=== PATIENT | female | born 1970 | race Caucasian/White ===

== ENCOUNTER → 2021-02-08 10:43 | Outpatient (CLI) | payer MEDICARE, SELFPAY ==
[2021-02-08 10:20] VITALS: BMI 41.5
[2021-02-08 13:31] LABS: Ferritin 187 ng/mL (8-252); T4 Free Direct 1.08 ng/dL (0.76-1.46)
[2021-02-08 13:47] LABS: Vitamin B12 173 pg/mL (211-911); Vitamin D,25 Hydroxy 17.3 ng/mL
[2021-02-09 09:48] LABS: Thyroid Peroxidase AB < 9 IU/mL (0-34)
== END ==
PROVIDERS: PCP Family Medicine; Referring Provider Internal Medicine Endocrinology, Diabetes & Metabolism; Visit Provider Internal Medicine Endocrinology, Diabetes & Metabolism
DX: E03.8 Other specified hypothyroidism (principal); E06.3 Autoimmune thyroiditis; R20.2 Paresthesia of skin; E55.9 Vitamin D deficiency, unspecified; E61.1 Iron deficiency
CPT/HCPCS: 36415; 82306; 82607; 82728; 84439; 84443; 86376

== ENCOUNTER → 2022-03-28 | Outpatient (CLI) | payer MEDICARE, SELFPAY ==
[2022-03-28 12:30] LABS: T4 Free Direct 2.36 ng/dL (0.76-1.46); Thyroid Stim Hormone (TSH) 0.47 uIU/mL (0.358-3.74)
== END | disposition home or self-care (01) ==
LOC: BIMLAB 11:17
PROVIDERS: PCP Family Medicine; Referring Provider Internal Medicine Endocrinology, Diabetes & Metabolism; Visit Provider Internal Medicine Endocrinology, Diabetes & Metabolism
DX: E03.9 Hypothyroidism, unspecified (principal)
CPT/HCPCS: 36415; 84439; 84443